=== PATIENT | female | born 1945 | race Caucasian/White ===

== ENCOUNTER 2021-01-16 14:35 | Emergency (ER) | payer MEDICARE, OTHER ==
[~2021-01-16] VITALS: Ht 160 cm; Wt 64.4 kg
[2021-01-16] MEDS ORDERED: HYDROCODONE/APAP 5/325MG TABLET PO ONE (15:00)
[2021-01-16] MEDS ORDERED: HYDROCODONE/APAP 5/325MG TABLET ONE (15:03)
--- NOTE | 2021-01-16 15:18 | NUR ---
[id number], from [facility], c/o right wrist pain s/p fall, R eye hematoma, -loc. On room air, breathing evenly and unlabored. Connected to the monitor and pulse ox. Kept comfortable, will continue to monitor accordingly.
[2021-01-16] MEDS ORDERED: LIDOCAINE HCL/PF 1% 30 ML VIAL TP ONE (16:00)
[2021-01-16] MEDS ORDERED: TDAP [DIPH/PERTUSSIS/TET] 0.5 ML VIAL IM ONE ×2 (16:00→16:07)
[2021-01-16] MEDS ORDERED: LIDOCAINE HCL/MPF 1% 30 ML VIAL IJ ONE (16:06)
[2021-01-16] MEDS ORDERED: HYDR-4275 PO (17:15)
[2021-01-16 17:49] VITALS: BP 118/77
--- NOTE | 2021-01-16 17:50 | NUR ---
Patient discharged to home in stable condition. Written and verbal after care instructions given. Patient verbalizes understanding of instruction.
== END 2021-01-16 17:50 | disposition home or self-care (01) ==
LOC: ER 14:53
DX: S62.101A Fracture of unspecified carpal bone, right wrist, initial encounter for closed fracture (principal); S00.11XA Contusion of right eyelid and periocular area, initial encounter; Z79.899 Other long term (current) drug therapy; W18.39XA Other fall on same level, initial encounter; Y93.89 Activity, other specified; Y92.89 Other specified places as the place of occurrence of the external cause; Y99.8 Other external cause status
CPT/HCPCS: 29125; 73110 ×2; 90471; 90715; 99283; J3490 ×2

== ENCOUNTER 2024-04-21 23:38 | Emergency (ER) | payer OTHER, MEDICAID ==
[~2024-04-21] VITALS: Ht 165.1 cm; Wt 65.8 kg
[~2024-04-21 23:38] MED LIST: HYDR-4275 PO
[2024-04-22] MEDS: IV NS 0.9% 1,000 ML BAG IV ONE (00:31)
[2024-04-22 00:39] VITALS: BP 120/63; TEMP 97.8; O2SAT 98
[2024-04-22 00:56] LABS: BASOPHILS % (AUTO) 0.5 % (0.0-2.0); EOSINOPHILS # (AUTO) 0.2 K/uL (0.0-0.7); EOSINOPHILS % (AUTO) 3.6 % (0.0-6.0); HEMATOCRIT 36 % (33-45); HEMOGLOBIN 12.1 g/dL (11.5-14.8); LYMPHOCYTES # (AUTO) 1.3 K/uL (0.8-4.8); LYMPHOCYTES % (AUTO) 28.5 % (20.0-44.0); MEAN CORPUSCULAR HEMOGLOBIN 30 PG (26.0-33.0); MEAN CORPUSCULAR HGB CONC 33 g/dl (31.0-36.0); MEAN CORPUSCULAR VOLUME 90 fL (82-100); MONOCYTES # (AUTO) 0.6 K/uL (0.1-1.30); MONOCYTES % (AUTO) 12.8 % (2.0-12.0); NEUTROPHILS # (AUTO) 2.5 K/uL (1.8-8.9); NEUTROPHILS % (AUTO) 54.6 % (43.0-81.0); PLATELET COUNT (AUTO) 167 K/uL (150-450); RED BLOOD CELL COUNT(AUTO) 4.02 MIL/uL (4.0-5.2); WHITE BLOOD COUNT (AUTO) 4.5 K/uL (4.3-11.0)
[2024-04-22] MEDS ORDERED: LIDOCAINE 2%-EPI 1:100,000 30 ML VIAL ONE (00:56)
[2024-04-22 01:09] LABS: CALCIUM, SERUM 8.8 mg/dL (8.5-10.1); CARBON DIOXIDE 26 mmol/L (21-32); CHLORIDE 108 mmol/L (98-107); CREATININE 0.7 mg/dL (0.6-1.3); GLUCOSE 106 mg/dL (74-106); POTASSIUM 4.2 mmol/L (3.5-5.1); SODIUM SERUM 142 mmol/L (136-145); UREA NITROGEN, BLOOD 20 mg/dL (7-18)
[2024-04-22 01:16] LABS: LACTIC ACID 1.3 mmol/L (0.4-2.0)
[2024-04-22 01:20] LABS: ALCOHOL, BLOOD < 3 mg/dL (0-10); NT-PRO BNP 169 pg/mL (0-125)
[2024-04-22 01:25] LABS: ALANINE AMINOTRANSFERASE 33 U/L (12-78); ALBUMIN 3.6 g/dL (3.4-5.0); ALKALINE PHOSPHATASE 80 U/L (46-116); ASPARTATE AMINOTRANSFERASE 34 U/L (15-37); BILIRUBIN,DIRECT 0.1 mg/dL (0.0-0.2); BILIRUBIN,TOTAL 0.4 mg/dL (0.2-1.0); TOTAL PROTEIN, SERUM 6.8 g/dL (6.4-8.2)
[2024-04-22 02:59] LABS: APPEARANCE,URINE CLEAR (CLEAR); BILIRUBIN,URINE NEGATIVE (NEGATIVE); BLOOD, URINE NEGATIVE Ery/uL (NEGATIVE); COLOR,URINE YELLOW (YELLOW); KETONES,URINE NEGATIVE (NEGATIVE); LEUKOCYTE ESTERASE ,URINE TRACE (NEGATIVE); NITRITE, URINE NEGATIVE (NEGATIVE); PROTEIN,URINE NEGATIVE (NEGATIVE); UGLUCOSE NEGATIVE (NEGATIVE); UROBILINOGEN,URINE 0.2 EU/dL (0.2)
[2024-04-22 03:10] LABS: AMPHETAMINE, URINE NEGATIVE (NEGATIVE); BARBITURATE, URINE NEGATIVE (NEGATIVE); BENZODIAZEPINE, URINE NEGATIVE (NEGATIVE); CANNABINOID, URINE NEGATIVE (NEGATIVE); COCCAINE, URINE NEGATIVE (NEGATIVE); OPIATE, URINE NEGATIVE (NEGATIVE); PHENCYCLIDINE SCREEN,URINE NEGATIVE (NEGATIVE)
[2024-04-22 03:18] LABS: ADD URINE CULTURE NO; BACTERIA,URINE None seen /HPF (None Seen); RBC,URINE NONE SEEN /HPF (0-2)
[2024-04-22] MEDS ORDERED: ASPIRIN 325 MG TABLET ONE (06:01)
[2024-04-22] MEDS: ASPIRIN 325 MG TABLET PO ONE (06:03)
== END 2024-04-22 07:34 | disposition short-term general hospital (02) ==
LOC: ER 23:38
DX: R55 Syncope and collapse (principal); M25.519 Pain in unspecified shoulder; R79.89 Other specified abnormal findings of blood chemistry; Z60.2 Problems related to living alone; Z20.822 Contact with and (suspected) exposure to COVID-19
CPT/HCPCS: 99285; 96360; 93005; 87804 ×2; 71045; 70450; 85025; 80048; 83605; 80076; 81001; 36415; 84484 ×2; 83880; 87426; 80320; 80307; J7030; J3490; G0480

== ENCOUNTER 2024-09-03 14:29 | Emergency (ER) | payer OTHER, MEDICAID ==
[~2024-09-03] VITALS: Ht 162.6 cm; Wt 56.2 kg
[2024-09-03] MEDS ORDERED: ACETAMINOPHEN ES 500 MG TABLET ONE (15:42)
[2024-09-03] MEDS: ACETAMINOPHEN 325 MG TABLET PO ONE (15:54)
[2024-09-03 16:23] VITALS: BP 125/79; TEMP 98.2; O2SAT 98
== END 2024-09-03 16:24 | disposition home or self-care (01) ==
LOC: ER 14:35
DX: S33.9XXA Sprain of unspecified parts of lumbar spine and pelvis, initial encounter (principal); S16.1XXA Strain of muscle, fascia and tendon at neck level, initial encounter; R51.9 Headache, unspecified; Z60.2 Problems related to living alone; Z79.899 Other long term (current) drug therapy; V43.12XA Car passenger injured in collision with other type car in nontraffic accident, initial encounter; Y93.89 Activity, other specified; Y92.415 Exit ramp or entrance ramp of street or highway as the place of occurrence of the external cause; Y99.8 Other external cause status
CPT/HCPCS: 70450-TC; 71045-TC; 72125-TC; 72131-TC

== ENCOUNTER 2025-01-30 15:34 | Emergency (ER) | payer MEDICARE, OTHER ==
[~2025-01-30] VITALS: Ht 162.6 cm; Wt 66.7 kg
[2025-01-30 15:45] VITALS: TEMP 98.9
[2025-01-30 16:21] LABS: PLATELET COUNT (AUTO) 171 K/uL (150-450); RED BLOOD CELL COUNT(AUTO) 4.09 MIL/uL (4.0-5.2); RED CELL DISTRIBUTION WIDTH 14.5 % (11.5-15.0); WHITE BLOOD COUNT (AUTO) 6.4 K/uL (4.3-11.0)
[2025-01-30 16:28] LABS: CALCIUM, SERUM 8.3 mg/dL (8.5-10.1); CREATININE 0.6 mg/dL (0.6-1.3); SODIUM SERUM 135 mmol/L (136-145); UREA NITROGEN, BLOOD 13 mg/dL (7-18)
[2025-01-30 16:34] LABS: ASPARTATE AMINOTRANSFERASE 19 U/L (15-37); TOTAL PROTEIN, SERUM 7.0 g/dL (6.4-8.2)
[2025-01-30 17:14] LABS: APPEARANCE,URINE CLEAR (CLEAR); BLOOD, URINE NEGATIVE Ery/uL (NEGATIVE); LEUKOCYTE ESTERASE ,URINE TRACE (NEGATIVE); NITRITE, URINE NEGATIVE (NEGATIVE); UGLUCOSE NEGATIVE (NEGATIVE)
[2025-01-30 17:20] LABS: ADD URINE CULTURE NO
[2025-01-30 17:21] LABS: SQUAMOUS EPITHELIAL CELL,UR Few /HPF (None Seen)
[2025-01-30] MEDS ORDERED: CEFTRIAXONE 1GM BAG (ER ONLY) 1 GM/50 ML PIGGYBACK IV ONE (17:30)
[2025-01-30] MEDS ORDERED: CEFTRIAXONE 1GM BAG (ER ONLY) 50 ML IV ONE (17:40)
[2025-01-30] MEDS ORDERED: LORAZEPAM INJ 2 MG/ML VIAL ONE (17:53)
[2025-01-30] MEDS: LORAZEPAM INJ 2 MG/ML VIAL IM ONE (17:57)
[2025-01-30 18:00] VITALS: BP 134/79; O2SAT 96
== END 2025-01-30 18:59 | disposition short-term general hospital (02) ==
LOC: ER 15:40
DX: N39.0 Urinary tract infection, site not specified (principal); F03.90 Unspecified dementia, unspecified severity, without behavioral disturbance, psychotic disturbance, mood disturbance, and anxiety; R07.9 Chest pain, unspecified; Z91.83 Wandering in diseases classified elsewhere; Z60.2 Problems related to living alone
CPT/HCPCS: 99285; 70450; 71045; 96372; 93005; 85025; 80048; 87086; 83690; 80076; 81001; 36415; 84484; J2060; J1200; J0696